=== PATIENT | male | born 1960 | race Caucasian/White ===

== ENCOUNTER 2025-05-07 04:59 | Inpatient (IN) | payer OTHER ==
[2025-05-07] MEDS: IPRATROPIUM-ALBUTEROL 3 ML NEB INHALATION STA ×2 (05:09→07:56)
[2025-05-07] MEDS: LACTATED RINGERS 1,000 ML IV ONE (05:15)
[2025-05-07] MEDS: methylPREDNISolone SOD SUCCI 125 MG/2 ML VIAL IV STA (05:16)
[2025-05-07] MEDS: LORazepam 1 MG/0.5 ML VIAL IV STA ×2 (05:16→17:20)
[2025-05-07] MEDS: MAGNESIUM SULFATE-D5W PMX 1 GM in DEXTROSE/WATER 1 100ML.BAG IVPB SCH (05:17)
[2025-05-07 05:53] LABS: Basophils # (A) 0.02 10*3/uL (0.00-0.10); Basophils % (A) 0.3 %; Eosinophils % (A) 4.7 %; HCT 43.7 % (39.6-50.0); HGB 15.1 g/dL (13.0-17.0); Lymphocytes # (A) 1.81 10*3/uL (0.90-5.00); Lymphocytes % (A) 28.1 %; MCH 29.5 pg (27.0-32.0); MCHC 34.6 g/dL (32.0-37.0); MCV 85.5 fL (80.0-97.0); Mean Platelet Volume 10.9 fL (9.5-12.2); Monocytes # (A) 0.88 10*3/uL (0.20-1.00); Monocytes % (A) 13.6 %; Neutrophils # (A) 3.42 10*3/uL (1.80-7.70); Platelet Count 213 10*3/uL (140-440); RBC 5.11 10*6/uL (4.40-5.60); RDW 11.6 % (11.5-14.5); WBC 6.45 10*3/uL (4.50-10.00)
--- NOTE | 2025-05-07 05:53 | ED ---
General Adult HPI - General Chief complaint: Shortness of Breath Stated complaint: CAMERON Time Seen by Provider: 05/07/25 05:01 Source: patient, EMS - History of Present Illness Initial comments: Patient is a 64-year-old gentleman no significant past medical history presenting today for shortness of breath. Patient states that since Wednesday has had progressively worsening shortness of breath and a cough productive of sputum. He denies any history of COPD or asthma. Is a prior smoker but has not smoked for 40 years. Denies associated fevers or chest pain. - Related Data Allergies Allergy/AdvReac Type Severity Reaction Status Date / Time No Known Allergies Allergy Verified 05/07/25 05:06 Review of Systems ROS Statement: Those systems with pertinent positive or pertinent negative responses have been documented in the HPI. ROS Other: All systems not noted in ROS Statement are negative. Past Medical History Past Medical History: No Reported History Past Surgical History: No Surgical Hx Reported Smoking Status: Former smoker Past Alcohol Use History: None Reported Past Drug Use History: None Reported General Exam - General Exam Comments Initial Comments: PE: CONSTITUTIONAL: In moderate distress, ill-appearing, nontoxic, tachypneic SKIN: Cool, dry, no jaundice, hives or petechiae EYES: Pupils are equally round, extraocular movements intact without nystagmus, clear conjunctiva, non-icteric sclera HENT: Normocephalic, atraumatic, moist mucus membranes, oropharynx clear without exudates NECK: , Full range of motion, normal appearance PULMONARY: Tachypnea, no grease man muscle use, rales in the right lower lung field, wheezes throughout remaining lung miranda no stridor CARDIOVASCULAR: Regular rate, rhythm, normal S1 and S2. No appreciated murmurs, rubs or gallops. Strong radial pulses with intact distal perfusion. No lower extremity edema GASTROINTESTINAL: Soft, active bowel sounds throughout, non-tender, non- distended, no palpable masses, no rebound or guarding. No hepatosplenomegaly MUSCULOSKELETAL: Extremities have no gross deformity, no edema, redness, or swelling. No calf swelling NEUROLOGIC:_a/o x 3, GCS 15, normal mentation and speech. Moves all extremities x 4 without motor or sensory deficit PSYCHIATRIC:_normal mood and affect, thought process is clear and linear Course Vital Signs 06/09/25 06/09/25 06/09/25 04:59 05:07 05:10 Temperature 98.3 F Pulse Rate 92 90 Respiratory 24 24 Rate Blood Pressure 152/122 O2 Sat by Pulse 100 Oximetry 05/07/25 05/07/25 05:20 06:26 Temperature Pulse Rate 92 90 Respiratory 18 Rate Blood Pressure 139/98 O2 Sat by Pulse 97 Oximetry EKG Findings - EKG Comments: EKG Findings:: Sinus rhythm, rate 88 bpm, intervals within acceptable limits, no significant ST elevations or depressions, no arrhythmia Medical Decision Making - Medical Decision Making Was pt. sent in by a medical professional or institution (, [facility], FACILITIES MANAGEMENT EXECUTIVE, urgent care, hospital, or long-term...) When possible be specific @ -[No] Did you speak to anyone other than the patient for history (EMS, parent, family, police, friend...)? What history was obtained from this source @ -[No] Did you review nursing and triage notes (agree or disagree)? Why? @ -[I reviewed nursing and triage notes] Were old charts reviewed (outside hosp., previous admission, EMS record, old EKG, old radiological studies, urgent care reports/EKG's, long-term records)? Report findings @ -[Medical records reviewed] Differential Diagnosis (chest pain, altered mental status, abdominal pain women, abdominal pain men, vaginal bleeding, weakness, fever, dyspnea, syncope, headache, dizziness, GI bleed, back pain, seizure, CVA, palpatations, mental health, musculoskeletal)? @ -[not applicable] EKG interpreted by me (3pts min.). @ -[As above] X-rays interpreted by me (1pt min.). @ -[None done] CT interpreted by me (1pt min.). @ -[None done] U/S interpreted by me (1pt. min.). @ -[None done] What testing was considered but not performed or refused? (CT, X-rays, U/S, labs)? Why? @ -[None] What meds were considered but not given or refused? Why? @ -[None] Did you discuss the management of the patient with other professionals (pr ofessionals i.e. , [facility], FACILITIES MANAGEMENT EXECUTIVE, lab, RT, psych nurse, social worker aide, library circulation department chief, teacher, registration officer, mental health case manager)? Give summary @ -[No] Was smoking cessation discussed for >3mins.? @ -[No] Was critical care preformed (if so, how long)? @ -[No] Were there social determinants of health that impacted care today? How? (Homelessness, low income, unemployed, alcoholism, drug addiction, transportation, low edu. Level, literacy, decrease access to med. care, correction, rehab)? @ -[No] Was there de-escalation of care discussed even if they declined (Discuss DNR or withdrawal of care, Hospice)? @ -[No] What co-morbidities impacted this encounter? (DM, HTN, Smoking, COPD, CAD, Cancer, CVA, ARF, Chemo, Hep., AIDS, mental health diagnosis, sleep apnea, morbid obesity)? @ -[None] Was patient admitted / discharged? Hospital course, mention meds given and route, prescriptions, significant lab abnormalities, going to OR and other pertinent info. @ -[hospital course] patient is a 64-year-old gentleman no significant medical history presenting today for shortness of breath. Patient seen and assessed on arrival, he is moderate distress, tachypneic, ill-appearing. Rales in right lower lung field with wheezes throughout. He does have frequent PVCs on telemetry.Vitals on arrival show pulse ox of 100%, blood pressure 152/122, respiratory rate of 24, pulse 92 temperature 98.3. Patient will be given1 L IV fluids, DuoNeb, Rocephin and azithromycin given rales on exam and concern for community acquired pneumonia, 125 Solu-Medrol, 2 g IV magnesium. On reassessment patient is more short comfortable appearing, no longer tachypneic. He does still have significant wheezes bilaterally on exam. Additionally continues to have frequent PVCs, approximately every other beat is a PVC. Labs are overall reassuring. CXR shows no consolidations, however due to significant persistent wheezing on pulmonary exam with frequent PVCs will admit for observation on telemetry. Patient agreeable plan of care. Undiagnosed new problem with uncertain prognosis? @ -[No] Drug Therapy requiring intensive monitoring for toxicity (Heparin, Nitro, Insulin, Cardizem)? @ -[No] Were any procedures done? @ -[No] Diagnosis/symptom? @ -[default] Acute, or Chronic, or Acute on Chronic? @ -[default] Uncomplicated (without systemic symptoms) or Complicated (systemic symptoms)? @ -[default] Side effects of treatment? @ -[No] Exacerbation, Progression, or Severe Exacerbation? @ -[No] Poses a threat to life or bodily function? How? (Chest pain, [place], [place], pneumonia, PE, COPD, DKA, ARF, appy, cholecystitis, CVA, Diverticulitis, Homicidal, Suicidal, threat to staff... and all critical care pts) @ -[No] - Lab Data Result diagrams: 05/07/25 05:09 05/07/25 05:09 Lab Results 05/07/25 05/07/25 05/07/25 Range/Units 05:09 05:09 05:09 WBC 6.45 (4.50-10.00) 10*3/uL RBC 5.11 (4.40-5.60) 10*6/uL Hgb 15.1 (13.0-17.0) g/dL Hct 43.7 (39.6-50.0) % MCV 85.5 (80.0-97.0) fL MCH 29.5 (27.0-32.0) pg MCHC 34.6 (32.0-37.0) g/dL Plt Count 213 (140-440) 10*3/uL MPV 10.9 (9.5-12.2) fL Immature Gran % (Auto) 0.3 % Neutrophils % 53.0 % Lymphocytes % 28.1 % Monocytes % 13.6 % Eosinophils % 4.7 % Basophils % 0.3 % Immature Gran # 0.02 (0.00-0.04) 10*3/uL Neutrophils # 3.42 (1.80-7.70) 10*3/uL Lymphocytes # 1.81 (0.90-5.00) 10*3/uL Monocytes # 0.88 (0.20-1.00) 10*3/uL Eosinophils # 0.30 (0.04-0.35) 10*3/uL Basophils # 0.02 (0.00-0.10) 10*3/uL PT 11.1 (10.0-12.5) sec INR 1.0 (<1.2) APTT 24.8 (22.0-30.0) sec Sodium 138 (137-145) mmol/L Potassium 4.5 (3.5-5.1) mmol/L Chloride 101 (98-107) mmol/L Carbon Dioxide 20 L (22-30) mmol/L Anion Gap 17 mmol/L BUN 16 (9-20) mg/dL Creatinine 0.86 (0.66-1.25) mg/dL Est GFR (CKD-EPI)AfAm >90 (>60 ml/min/1.73 sqM) Est GFR (CKD-EPI)NonAf >90 (>60 ml/min/1.73 sqM) Glucose 110 H (74-99) mg/dL Calcium 10.2 (8.4-10.2) mg/dL Magnesium 1.7 (1.6-2.3) mg/dL Total Bilirubin 0.7 (0.2-1.3) mg/dL AST 28 (17-59) U/L ALT 20 (4-49) U/L Alkaline Phosphatase 66 (38-126) U/L NT-Pro-B Natriuret Pep 67 pg/mL Total Protein 7.4 (6.3-8.2) g/dL Albumin 4.5 (3.5-5.0) g/dL Influenza Type A (PCR) (Not Detectd) Influenza Type B (PCR) (Not Detectd) RSV (PCR) (Not Detectd) SARS-CoV-2 (PCR) (Not Detectd) 05/07/25 Range/Units 05:28 WBC (4.50-10.00) 10*3/uL RBC (4.40-5.60) 10*6/uL Hgb (13.0-17.0) g/dL Hct (39.6-50.0) % MCV (80.0-97.0) fL MCH (27.0-32.0) pg MCHC (32.0-37.0) g/dL Plt Count (140-440) 10*3/uL MPV (9.5-12.2) fL Immature Gran % (Auto) % Neutrophils % % Lymphocytes % % Monocytes % % Eosinophils % % Basophils % % Immature Gran # (0.00-0.04) 10*3/uL Neutrophils # (1.80-7.70) 10*3/uL Lymphocytes # (0.90-5.00) 10*3/uL Monocytes # (0.20-1.00) 10*3/uL Eosinophils # (0.04-0.35) 10*3/uL Basophils # (0.00-0.10) 10*3/uL PT (10.0-12.5) sec INR (<1.2) APTT (22.0-30.0) sec Sodium (137-145) mmol/L Potassium (3.5-5.1) mmol/L Chloride (98-107) mmol/L Carbon Dioxide (22-30) mmol/L Anion Gap mmol/L BUN (9-20) mg/dL Creatinine (0.66-1.25) mg/dL Est GFR (CKD-EPI)AfAm (>60 ml/min/1.73 sqM) Est GFR (CKD-EPI)NonAf (>60 ml/min/1.73 sqM) Glucose (74-99) mg/dL Calcium (8.4-10.2) mg/dL Magnesium (1.6-2.3) mg/dL Total Bilirubin (0.2-1.3) mg/dL AST (17-59) U/L ALT (4-49) U/L Alkaline Phosphatase (38-126) U/L NT-Pro-B Natriuret Pep pg/mL Total Protein (6.3-8.2) g/dL Albumin (3.5-5.0) g/dL Influenza Type A (PCR) Not Detected (Not Detectd) Influenza Type B (PCR) Not Detected (Not Detectd) RSV (PCR) Not Detected (Not Detectd) SARS-CoV-2 (PCR) Not Detected (Not Detectd) Disposition Clinical Impression: Acute bronchitis, Frequent PVCs, Atypical pneumonia Disposition: ADMITTED IP TO THIS [facility] Condition: Stable Referrals: None,Stated [REFERRING] - 1-2 days
[2025-05-07 06:07] LABS: Partial Thromboplastin Time 24.8 sec (22.0-30.0); Prothrombin Time 11.1 sec (10.0-12.5)
[2025-05-07 06:19] LABS: Influenza A Not Detected (Not Detectd); Influenza B Not Detected (Not Detectd); RSV Not Detected (Not Detectd)
[2025-05-07 06:23] LABS: ALT 20 U/L (4-49); AST 28 U/L (17-59); African American GFR (CKD) >90 (>60 ml/min/1.73 sqM); Albumin 4.5 g/dL (3.5-5.0); Alkaline Phosphatase 66 U/L (38-126); Anion Gap 17 mmol/L; Blood Urea Nitrogen 16 mg/dL (9-20); Calcium 10.2 mg/dL (8.4-10.2); Carbon Dioxide 20 mmol/L (22-30); Chloride 101 mmol/L (98-107); Glucose 110 mg/dL (74-99); Magnesium 1.7 mg/dL (1.6-2.3); Non-African American GFR(CKD) >90 (>60 ml/min/1.73 sqM); Potassium 4.5 mmol/L (3.5-5.1); Sodium 138 mmol/L (137-145); Total Bilirubin 0.7 mg/dL (0.2-1.3); Total Protein 7.4 g/dL (6.3-8.2)
--- NOTE | 2025-05-07 06:24 | XR ---
EXAMINATION TYPE: XR chest 2V DATE OF EXAM: 05/07/2025 CLINICAL INDICATION: Male, 64 years old with history of difficulty breathing, TECHNIQUE: Frontal and lateral views of the chest are obtained. COMPARISON: None FINDINGS: There is no focal air space opacity, pleural effusion, or pneumothorax seen. The cardiac silhouette size is within normal limits. The osseous structures are intact. IMPRESSION: No acute cardiopulmonary process. [facility], , 05/07/2025 6:22 AM
[2025-05-07 06:32] LABS: NT-Pro-B-Type Natriuretic Pept 67 pg/mL
[2025-05-07] MEDS ORDERED: NALOXONE 0.4 MG/ML 1 ML VIAL IVP PRN (06:50)
[2025-05-07] MEDS ORDERED: guaiFENesin-Coden 100-10MG/5ML 10 ML CUP PO PRN (06:50)
[2025-05-07] MEDS ORDERED: IPRATROPIUM-ALBUTEROL 3 ML NEB INHALATION PRN (06:50)
[2025-05-07] MEDS ORDERED: ACETAMINOPHEN TAB 325 MG TAB PO PRN (06:50)
[2025-05-07] MEDS: AZITHROMYCIN 500 MG in SODIUM CHLORIDE 0.9% 250 ML IVPB STA (07:21)
[2025-05-07] MEDS: IPRATROPIUM-ALBUTEROL 3 ML NEB INHALATION SCH (07:58)
[2025-05-07] MEDS ORDERED: RX INFO: IV CONTRAST WAS GIVEN 1 EACH MISC MISCELLANE PRN (08:21)
[2025-05-07] MEDS: guaiFENesin 600 MG TABLET.ER PO SCH (08:25)
[2025-05-07] MEDS: ENOXAPARIN 40 MG/0.4 ML SYRINGE SQ SCH (08:31)
--- NOTE | 2025-05-07 10:24 | CT ---
EXAMINATION TYPE: CT chest w con DATE OF EXAM: 05/07/2025 9:16 AM COMPARISON: None. CLINICAL INDICATION: Male, 64 years old with history of Dyspnea, Dyspnea. TECHNIQUE: Axial images were obtained at 5 mm thick sections. Reconstructed images are reviewed on [place] computer in the coronal plane. Contrast used:100 ml mL of Isovue 300 with IV Contrast, (none if empty) Oral contrast used: (none if empty) CT DLP: 358 mGycm, Automated exposure control for dose reduction was used. FINDINGS: Portion of the thyroid visualized is normal. There is some minimal compressive atelectasis within the dependent right lung base. Small area of inc reased densities in the posterior right centimeters. Series 201 image 74. Additional punctate densiti es are in the region. No enlarged mediastinal or hilar adenopathy is evident. Few shotty lymph nodes within the mediastinu m. The ascending aorta diameter at the level of the main pulmonary artery is 3.7 cm. The main pulmon abbey artery diameter at the bifurcation is 3.0 cm. Moderate coronary artery calcifications present. Limited CT sections are obtained through the upper abdomen. Abdomen is essentially unremarkable. IMPRESSION: 1. Nodule with smaller punctate densities in the right lower lung field discussed above. Pneumonia an d neoplasm could be considered. Follow-up recommended. [facility], , 05/07/2025 10:22 AM
--- NOTE | 2025-05-07 10:51 | P.CRDCN ---
History of Present Illness Consult date: 05/07/25 Reason for Consult (text): Frequent PVCs History of present illness: This is a 64-year-old male with no significant past medical history. We have been asked to evaluate the patient for frequent PVCs. Patient states that he has had no previous cardiac testing in the past. He has been told that he has his irregular heartbeat on occasion which seems to been better than it has in the past. He states he has had this for about 5 to 6 years. He was told that he had the PVCs by the [facility]. 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 He denies chest pain, shortness of breath is normal for him. He states for the past 4 days he has had shortness of breath with more difficulty in the exhale. He states he has had a cough with sputum production. He has also had some lightheadedness or dizziness. He does have a history of smoking and quit 25 years ago. He denies any alcohol use. He does drink a full pot of coffee daily. Blood pressure 132/82, heart rate 112, pulse ox 94% on room air. Patient is seen today in the emergency center waiting for bed on the cardiac stepdown unit. -EKG: Sinus rhythm nonspecific changes no acute ST changes. Telemetry with frequent PVCs. -Chest x-ray: No acute process -Laboratory studies: CBC is unremarkable. INR 1. Lactic acid 3.3. Creatinine 0.86, potassium 4.5, magnesium 1.7, liver function tests are normal. proBNP 67, troponin negative x 1. Cepheid viral panel not detected. -Home cardiac medications: None Review Of Systems: At the time of my exam: CONSTITUTIONAL: Denies fever or chills. HEENT: Denies blurred vision, vision changes, or eye pain. Denies hemoptysis CARDIOVASCULAR: Denies chest pain. Denies orthopnea. Denies PND. Denies palpitations RESPIRATORY: Denies shortness of breath. Reports cough with sputum production. GASTROINTESTINAL: Denies abdominal pain. Denies nausea or vomiting. HEMATOLOGIC: Denies bleeding disorders. GENITOURINARY: Denies any blood in urine. SKIN: Denies puritis. Denies rash. Physical examination: Gen: This is 64-year-old male in no acute distress VS: reviewed HEENT: Head is atraumatic, normocephalic. Pupils equal, round. Sclerae is a nicteric. NECK: Supple. No JVD. LUNGS: Bilateral rhonchi. No intercostal retractions. HEART: Regular rate and rhythm. No murmur. ABDOMEN: Soft No tenderness. EXTREMITIES: No pedal edema. No calf tenderness. NEUROLOGICAL: Patient is awake, alert and oriented x3. 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 Nurse practitioner note has been reviewed, I agree with documented findings and plan of care. Patient was seen and examined. Past Medical History Past Medical History: No Reported History Past Surgical History: No Surgical Hx Reported Smoking Status: Former smoker Past Alcohol Use History: None Reported Past Drug Use History: None Reported Medications and Allergies Allergies Allergy/AdvReac Type Severity Reaction Status Date / Time No Known Allergies Allergy Verified 05/07/25 05:06 Physical Exam Vitals: Vital Signs Temp Pulse Resp BP Pulse Ox 05/07/25 08:11 90 05/07/25 07:59 82 05/07/25 07:18 95 18 142/84 94 L 05/07/25 06:26 90 18 139/98 97 05/07/25 05:20 92 05/07/25 05:10 90 05/07/25 05:07 24 05/07/25 04:59 98.3 F 92 24 152/122 100 Intake and Output 05/06/25 05/07/25 05/07/25 22:59 06:59 14:59 Other: Weight 83.915 kg Results 05/07/25 05:09 05/07/25 05:09 Cardiac Enzymes 05/07/25 05/07/25 Range/Units 05:09 05:09 AST 28 (17-59) U/L Troponin I <0.012 (0.000-0.034) ng/mL Coagulation 05/07/25 Range/Units 05:09 PT 11.1 (10.0-12.5) sec APTT 24.8 (22.0-30.0) sec CBC 05/07/25 Range/Units 05:09 WBC 6.45 (4.50-10.00) 10*3/uL RBC 5.11 (4.40-5.60) 10*6/uL Hgb 15.1 (13.0-17.0) g/dL Hct 43.7 (39.6-50.0) % Plt Count 213 (140-440) 10*3/uL Comprehensive Metabolic Panel 05/07/25 Range/Units 05:09 Sodium 138 (137-145) mmol/L Potassium 4.5 (3.5-5.1) mmol/L Chloride 101 (98-107) mmol/L Carbon Dioxide 20 L (22-30) mmol/L BUN 16 (9-20) mg/dL Creatinine 0.86 (0.66-1.25) mg/dL Glucose 110 H (74-99) mg/dL Calcium 10.2 (8.4-10.2) mg/dL AST 28 (17-59) U/L ALT 20 (4-49) U/L Alkaline Phosphatase 66 (38-126) U/L Total Protein 7.4 (6.3-8.2) g/dL Albumin 4.5 (3.5-5.0) g/dL Current Medications Generic Name Dose Route Start Last Admin Trade Name Freq PRN Reason Stop Dose Admin Acetaminophen 650 mg 05/07/25 06:50 Acetaminophen Tab 325 Mg Tab PO Q6HR PRN Mild Pain or Fever > 100.5 Albuterol/Ipratropium 3 ml 05/07/25 06:50 Ipratropium-Albuterol 3 Ml Neb INHALATION RT-Q2H PRN Shortness Of Breath Or Wheezing Albuterol/Ipratropium 3 ml 05/07/25 08:00 05/07/25 07:58 Ipratropium-Albuterol 3 Ml Neb INHALATION 3 ml RT-QID DELVIN Administration Azithromycin 500 mg 05/08/25 09:00 Azithromycin 500 Mg Tab PO 05/09/25 09:01 DAILY [facility] Protocol Enoxaparin Sodium 40 mg 05/07/25 09:00 05/07/25 08:31 Enoxaparin 40 Mg/0.4 Ml Syringe SQ Not Given DAILY [facility] Guaifenesin 600 mg 05/07/25 09:00 05/07/25 08:25 Guaifenesin 600 Mg Tablet.Er PO 600 mg Q12HR DELVIN Administration Guaifenesin/Codeine Phosphate 10 ml 05/07/25 06:50 Guaifenesin-Coden 100-10mg/5ml 10 Ml Cup PO Q6H PRN Cough Ceftriaxone Sodium 1 gm/ 50 mls @ 100 mls/hr 05/08/25 09:00 Sodium Chloride IVPB 05/11/25 09:29 Q24HR DELVIN Protocol Miscellaneous Information 1 each 05/07/25 08:21 Rx Info: Iv Contrast Was Given 1 Each Misc MISCELLANE 05/09/25 08:22 DAILY PRN Per Protocol Naloxone HCl 0.2 mg 05/07/25 06:50 Naloxone 0.4 Mg/Ml 1 Ml Vial IVP Q2M PRN Opioid Reversal Prednisone 40 mg 05/08/25 09:00 Prednisone 20 Mg Tab PO 05/12/25 09:01 DAILY DELVIN Intake and Output 05/06/25 05/07/25 05/07/25 22:59 06:59 14:59 Other: Weight 83.915 kg 05/07/25 05:09 05/07/25 05:09
[2025-05-07] MEDS ORDERED: NON FORMULARY DRUG (Naloxone Hcl [Narcan] 4 MG Each) NASAL PRN (11:20)
[2025-05-07] MEDS ORDERED: DEXTROSE 50% SYRINGE 50 ML IVP PRN ×2 (11:22)
[2025-05-07] MEDS: methylPREDNISolone SOD SUCCI 125 MG/2 ML VIAL IV SCH (11:46)
[2025-05-07] MEDS: LEVOTHYROXINE 50 MCG TAB PO SCH (11:50)
--- NOTE | 2025-05-07 11:51 | CA ---
Transthoracic Echo Report Name: Dustin Tapia Age: 64 Gender: M : 1960 Exam Date: 05/07/2025 09:37 Exam Location: [facility] Ht (in): 73 Wt (lb): 185 Ordering Physician: Harmony Jewell Attending/Referring Phys: [id number], [place] Retail Assistant Store Manager Sana Brunner RDCS Procedure CPT: Indications: LVF, freq PVCs Cardiac Hx: COPD Technical Quality: Good Contrast 1: Total Dose (mL): Contrast 2: Total Dose (mL): MEASUREMENTS (Male / Female) Normal Values 2D ECHO LV Diastolic Diameter PLAX 4.9 cm 4.2 - 5.9 / 3.9 - 5.3 cm LV Systolic Diameter PLAX 2.7 cm IVS Diastolic Thickness 0.8 cm 0.6 - 1.0 / 0.6 - 0.9 cm LVPW Diastolic Thickness 0.9 cm 0.6 - 1.0 / 0.6 - 0.9 cm LV Relative Wall Thickness 0.3 RV Internal Dim ED PLAX 3.9 cm LA Systolic Diameter LX 3.6 cm 3.0 - 4.0 / 2.7 - 3.8 cm LV Diastolic Volume MOD 4C 79.9 cm??? LV Systolic Volume MOD 4C 42.7 cm??? LV Ejection Fraction MOD 4C 46.5 % LV Cardiac Index MOD 4C 1907.5 cm???/min???m??? LV Diastolic Length 4C 9.8 cm LV Systolic Length 4C 8.1 cm LV Diastolic Volume MOD 2C 83.0 cm??? LV Systolic Volume MOD 2C 27.5 cm??? LV Ejection Fraction MOD 2C 66.8 % LV Cardiac Index MOD 2C 2850.3 cm???/min???m??? LV Diastolic Length 2C 9.5 cm LV Systolic Length 2C 7.8 cm LA Volume 36.6 cm??? 18 - 58 / 22 - 52 cm??? LA Volume Index 17.6 cm???/m??? 16 - 28 cm???/m??? M-MODE Aortic Root Diameter MM 3.7 cm AV Cusp Separation MM 2.2 cm DOPPLER AV Peak Velocity 175.7 cm/s AV Peak Gradient 12.3 mmHg MV Area PHT 5.8 cm??? Mitral E Point Velocity 97.0 cm/s Mitral A Point Velocity 133.6 cm/s Mitral E to A Ratio 0.7 MV Deceleration Time 131.9 ms TR Peak Velocity 259.9 cm/s TR Peak Gradient 27.0 mmHg Right Ventricular Systolic Press 32.0 mmHg FINDINGS Left Ventricle Left ventricular ejection fraction is estimated at 55-60 %. Left ventricular cavity size normal. Left ventricular wall thickness normal. Normal left ventricular wall motion. Right Ventricle Right ventricular dilatation. Right ventricular systolic pressure within normal limits. Right Atrium Normal right atrial size. No right atrial thrombus or mass seen. Left Atrium Normal left atrial size. No spontaneous echo contrast seen in the left atrium. Mitral Valve Structurally normal mitral valve. No mitral stenosis, or prolapse. Trace to mild regurgitation Aortic Valve Trileaflet aortic valve. Aortic valve sclerosis. No aortic valve stenosis or regurgitation. Tricuspid Valve Structurally normal tricuspid valve. Mild tricuspid regurgitation. Pulmonic Valve Pulmonic valve not well visualized. No pulmonic regurgitation. Pericardium No pericardial effusion. Aorta Normal size aortic root and proximal ascending aorta. CONCLUSIONS 1. Normal left ventricular size and systolic function 2. Trace to mild mitral regurgitation 3. Mild tricuspid regurgitation with no evidence of pulmonary hypertension Previewed by: Dr. Cadence Mcgarry MD (Electronically Signed) Final Date: 07 May 2025 11:50
[2025-05-07 11:55] LABS: Glucose,Whole Blood 250 mg/dL (70-110)
[2025-05-07] MEDS: INSULIN LISPRO (HumaLOG) 100 UNIT/ML 10 mL VL SQ SCH (11:57)
[2025-05-07] MEDS: traMADol 50 MG TAB PO PRN (13:32)
--- NOTE | 2025-05-07 13:55 | P.CNPUL ---
History of Present Illness Consult date: 05/07/25 Requesting physician: Breonna Clark Reason for consult: cough, abnormal CXR/CT Chief complaint: Shortness of breath, cough, congestion History of present illness: This is a 64-year-old male patient with a known history of chronic back pain, former smoker who presented here to the emergency room early this morning with complaints of shortness of breath over the past 4 days. He has also had fever and chills along with diarrhea. His cough has been nonproductive. Chest x-ray reveals no acute pulmonary process. He is maintaining O2 saturations in the 90s on room air oxygen. He is afebrile. Hemodynamically stable. White count 6.4. Hemoglobin 15.1. Platelets 213. Sodium 138. Potassium 4.5. Bicarb 20. BUN 16. Creatinine 0.86. Glucose 110. Troponin negative x 1. proBNP 67. Viral screen was negative for influenza A/B, RSV and COVID. He is seen today in the emergency department in consultation. He is sitting up on a stretcher. Awake and alert in no acute distress. He does have a dry nonproductive cough. He is dyspneic with conversation. Dyspneic with minimal exertion. Echocardiogram revealed normal left ventricular size and systolic function. No significant senthil vular heart disease. No pulmonary hypertension. Review of Systems REVIEW OF SYSTEMS: CONSTITUTIONAL: Denies any recent significant weight loss or weight gain. EYES: Denies change in vision. EARS, NOSE, MOUTH, THROAT: Denies headaches, denies sore throat. CARDIOVASCULAR: Denies chest pain, palpitations or syncopal episodes. RESPIRATORY: Positive for shortness of breath, cough, congestion no hemoptysis. GASTROINTESTINAL: Denies change in appetite, denies abdominal pain GENITOURINARY: Denies hematuria, denies infections. MUSKULOSKELETAL: Denies pain, denies swelling. INTEGUMENTARY: Denies rash, denies eczema. NEUROLOGICAL: Denies recent memory loss, no recent seizure activity. PSYCHIATRIC: Denies anxiety, denies depression. HEMATOLOGIC/LYMPHATIC: Denies anemia, denies enlarged lymph nodes. Past Medical History Past Medical History: No Reported History Past Surgical History: No Surgical Hx Reported Smoking Status: Former smoker Past Alcohol Use History: None Reported Past Drug Use History: None Reported Medications and Allergies Home Medications Medication Instructions Recorded Confirmed Type Ergocalciferol [Vitamin D2 (1250 1,250 mcg PO WEEKLY 05/07/25 05/07/25 History Mcg = [id number] Iu)] Levothyroxine Sodium [Synthroid] 50 mcg PO DAILY 05/07/25 05/07/25 History Naloxone HCl [Narcan] 4 mg NASAL DIRECTED PRN 05/07/25 05/07/25 History Simvastatin [Zocor] 80 mg PO HS 05/07/25 05/07/25 History traMADol HCl [Ultram] 100 mg PO Q4HR PRN 05/07/25 05/07/25 History Allergies Allergy/AdvReac Type Severity Reaction Status Date / Time No Known Allergies Allergy Verified 05/07/25 05:06 Physical Exam Vitals: Vital Signs Temp Pulse Resp BP Pulse Ox 05/07/25 13:00 96 16 131/78 94 L 05/07/25 12:00 97 16 140/77 95 05/07/25 11:00 90 05/07/25 10:59 98.2 F 81 16 126/102 95 05/07/25 10:49 88 05/07/25 08:11 90 05/07/25 07:59 82 05/07/25 07:18 95 18 142/84 94 L 05/07/25 06:26 90 18 139/98 97 05/07/25 05:20 92 05/07/25 05:10 90 05/07/25 05:07 24 05/07/25 04:59 98.3 F 92 24 152/122 100 Intake and Output 05/06/25 05/07/25 05/07/25 22:59 06:59 14:59 Other: Weight 83.915 kg GENERAL EXAM: Alert, 64-year-old male patient, on room air oxygen, fairly comfortable in no apparent distress. HEAD: Normocephalic. EYES: Normal reaction of pupils, equal size. NOSE: Clear with pink turbinates. THROAT: No erythema or exudates. NECK: No masses, no JVD. CHEST: No chest wall deformity. LUNGS: Equal air entry with few scattered rhonchi. CVS: S1 and S2 normal with no audible murmur, regular rhythm. ABDOMEN: No hepatosplenomegaly, normal bowel sounds, no guarding or rigidity. SPINE: No scoliosis or deformity SKIN: No rashes CENTRAL NERVOUS SYSTEM: No focal deficits, tone is normal in all 4 extremities. EXTREMITIES: There is no peripheral edema. No clubbing, no cyanosis. Peripheral pulses are intact. Results - Laboratory Findings CBC and BMP: 05/07/25 05:09 05/07/25 05:09 PT/INR, D-dimer PT 11.1 sec (10.0-12.5) 05/07/25 05:09 INR 1.0 (<1.2) 05/07/25 05:09 D-Dimer 0.61 mg/L FEU (<0.60) H 05/07/25 11:32 Abnormal lab findings: Abnormal Labs 05/07/25 05/07/25 05/07/25 05:09 05:09 09:58 D-Dimer Carbon Dioxide 20 L Glucose 110 H POC Glucose (mg/dL) Plasma Lactic Acid Gustabo 3.3 H* 3.1 H* 05/07/25 05/07/25 05/07/25 11:32 11:54 13:14 D-Dimer 0.61 H Carbon Dioxide Glucose POC Glucose (mg/dL) 250 H Plasma Lactic Acid Gustabo 4.5 H* - Diagnostic Findings Chest x-ray: image reviewed Assessment and Plan Assessment: Dyspnea secondary to suspected acute exacerbation of chronic obstructive pulmonary disease versus early pneumonia. Chest x-ray reveals no acute cardiopulmonary process. Viral screen negative for influenza A/B, RSV, COVID Former smoker Chronic back pain Plan: The patient was seen and evaluated Chest x-ray, labs and medications reviewed Echocardiogram reviewed Will obtain a CT scan of the chest Currently stable on room air oxygen Continue DuoNeb inhalations Continue Solu-Medrol Lovenox for DVT prophylaxis Continue antibiotics for now Check a procalcitonin Robitussin as needed for cough We will continue to follow and make further recommendations based on his clinical status I have personally seen and examined the patient, performed the documentation and the assessment and plan as written. Number of minutes spent on the visit: 20 Dictation was produced using [employer] software. Please excuse any grammatical, word or spelling errors. Time with Patient: Greater than 30
--- NOTE | 2025-05-07 14:35 | HP ---
HISTORY AND PHYSICAL CHIEF COMPLAINT: Shortness of breath and cough. HISTORY OF PRESENT ILLNESS: This is a 64-year-old gentleman with a past medical history with no significant medical issues, was working in [employer] and . The patient apparently rode a motorcycle and subsequently had shortness of breath with cough and sputum. The patient came to the ER and was found to have bilateral pneumonia. Lactic acid is also elevated. The patient admitted for further evaluation and treatment. Viral testing is negative. There is no history of fever, rigors, or chills. PAST MEDICAL HISTORY: No significant cardiovascular illness. MEDICATIONS: Zocor. Rest of medications reviewed. ALLERGIES: None. FAMILY HISTORY: No history of heart disease or strokes in the family. SOCIAL HISTORY: No history of smoking or alcohol. REVIEW OF SYSTEMS: Fourteen-point review of systems is negative except as mentioned earlier. PHYSICAL EXAMINATION: VITAL SIGNS: Pulse is 81, blood pressure 120/61, and respirations 16. CHEST: Few scattered rhonchi especially in the bases, coarse crackles present. CARDIOVASCULAR: S1 and S2. ABDOMEN: Soft, nontender. EXTREMITIES: Legs, no edema. NERVOUS SYSTEM: No focal deficit. LABORATORY DATA: Reviewed. ASSESSMENT: 1. Bilateral pneumonia, possibly community-acquired. 2. Hypercholesterolemia. 3. Hypothyroidism. RECOMMENDATION: 1. This 64-year-old gentleman presented with multiple medical issues, we will monitor the patient closely. I recommend empiric antibiotics. We will check for mycoplasma and Legionella. 2. Frequent premature ventricular contractions. We will also consult Cardiology for evaluation of frequent premature ventricular contractions and home medications will be continued. A 2D echo with Doppler has been ordered. Further recommendations to follow. MMODL / IJN: [id number] /
[2025-05-07 17:06] LABS: Glucose,Whole Blood 189 mg/dL (70-110)
[2025-05-07] MEDS: SODIUM CHLORIDE 0.9% 1,000 ML IV SCH (17:18)
[2025-05-07] MEDS ORDERED: LORazepam 1 MG/0.5 ML VIAL IV PRN (17:19)
[2025-05-07] MEDS: SODIUM CHLORIDE 0.9% 500 ML 500 ML IV ONE (17:21)
[2025-05-07 18:06] LABS: Glucose,Whole Blood 206 mg/dL (70-110)
[2025-05-07 21:07] LABS: Glucose,Whole Blood 150 mg/dL (70-110)
[2025-05-07] MEDS: ATORVASTATIN 40 MG TAB PO SCH (21:09)
[2025-05-08 01:41] LABS: Basophils # (A) 0.02 10*3/uL (0.00-0.10); Basophils % (A) 0.1 %; HCT 38.1 % (39.6-50.0); HGB 13.1 g/dL (13.0-17.0); Lymphocytes # (A) 1.15 10*3/uL (0.90-5.00); Lymphocytes % (A) 8.5 %; MCH 29.7 pg (27.0-32.0); MCHC 34.4 g/dL (32.0-37.0); MCV 86.4 fL (80.0-97.0); Mean Platelet Volume 11.5 fL (9.5-12.2); Monocytes # (A) 0.57 10*3/uL (0.20-1.00); Monocytes % (A) 4.2 %; Neutrophils # (A) 11.77 10*3/uL (1.80-7.70); Neutrophils % (A) 86.9 %; Platelet Count 187 10*3/uL (140-440); RBC 4.41 10*6/uL (4.40-5.60); RDW 11.9 % (11.5-14.5); WBC 13.55 10*3/uL (4.50-10.00)
[2025-05-08 02:00] LABS: African American GFR (CKD) >90 (>60 ml/min/1.73 sqM); Anion Gap 9 mmol/L; Blood Urea Nitrogen 15 mg/dL (9-20); Calcium 9.7 mg/dL (8.4-10.2); Carbon Dioxide 24 mmol/L (22-30); Chloride 103 mmol/L (98-107); Glucose 214 mg/dL (74-99); Non-African American GFR(CKD) >90 (>60 ml/min/1.73 sqM); Potassium 4.2 mmol/L (3.5-5.1); Sodium 136 mmol/L (137-145)
[2025-05-08 06:02] LABS: Glucose,Whole Blood 150 mg/dL (70-110)
[2025-05-08] MEDS ORDERED: predniSONE 20 MG TAB PO SCH (09:00)
[2025-05-08] MEDS: AZITHROMYCIN 500 MG TAB PO SCH (09:41)
--- NOTE | 2025-05-08 11:04 | P.PN ---
Subjective This is a 64-year-old male with no significant past medical history. We have been asked to evaluate the patient for frequent PVCs. Patient states that he has had no previous cardiac testing in the past. He has been told that he has his irregular heartbeat on occasion which seems to been better than it has in the past. He states he has had this for about 5 to 6 years. He was told that he had the PVCs by the [facility]. 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 He denies chest pain, shortness of breath is normal for him. He states for the past 4 days he has had shortness of breath with more difficulty in the exhale. He states he has had a cough with sputum production. He has also had some lightheadedness or dizziness. He does have a history of smoking and quit 25 years ago. He denies any alcohol use. He does drink a full pot of coffee daily. Blood pressure 132/82, heart rate 112, pulse ox 94% on room air. Patient is seen today in the emergency center waiting for bed on the cardiac stepdown unit. 05/08/2025 Patient seen and examined walking around the room in no acute distress. He was seen initially for increased PVCs yesterday by Dr. Mcgarry. Echocardiogram reviewed, ejection fraction 55 to 60%, trace to mild MR, mild TR RVSP 32. Laboratory data reviewed, WBC 13.5, hemoglobin 13.1, platelets 187, sodium 136, potassium 4.2, creatinine 0.82, TSH 8.19, free T4 1.21. Physical examination: Gen: This is 64-year-old male in no acute distress HEENT: Head is atraumatic, normocephalic. Pupils equal, round. Sclerae is anicteric. NECK: Supple. No JVD. LUNGS: Bilateral rhonchi. No intercostal retractions. HEART: Regular rate and rhythm. No murmur. ABDOMEN: Soft No tenderness. EXTREMITIES: No pedal edema. No calf tenderness. NEUROLOGICAL: Patient is awake, alert and oriented x3. Assessment: Frequent PVCs, patient has been aware for 5 to 6 years Bilateral pneumonia Remote history of tobacco use and dependence Excessive coffee intake daily Plan: Increase levothyroxine to 75 mcg daily. He will take this 6 days/week. Follow- up thyroid labs in 6 weeks with PCP. 72-hour Holter monitor on discharge, follow-up in the office with Dr. Mcgarry in 2 weeks. We will follow as needed, please call with further questions or concerns. Nurse practitioner note has been reviewed, I agree with documented findings and plan of care. Patient was seen and examined. Objective - Vital Signs Vital signs: Vital Signs Temp 97.9 F 05/08/25 08:00 Pulse 85 05/08/25 09:32 Resp 20 05/08/25 08:00 BP 129/79 05/08/25 08:00 Pulse Ox 95 05/08/25 09:11 FiO2 Intake & Output 05/07/25 05/08/25 05/08/25 18:59 06:59 18:59 Intake Total 1240 180 Balance 1240 180 Weight 83.1 kg Intake: Intake, IV Titration 1000 Amount Sodium Chloride 0.9% 1, 1000 000 ml @ 75 mls/hr IV . [id number] DELVIN Rx#:[id number] Oral 240 180 Other: # Voids 3 - Labs CBC & Chem 7: 05/08/25 01:33 05/08/25 01:33 Labs: Abnormal Lab Results - Last 24 Hours (Table) 05/07/25 05/07/25 05/07/25 Range/Units 05:09 09:58 11:32 WBC (4.50-10.00) 10*3/uL Hct (39.6-50.0) % Neutrophils # (1.80-7.70) 10*3/uL Eosinophils # (0.04-0.35) 10*3/uL D-Dimer 0.61 H (<0.60) mg/L FEU Sodium (137-145) mmol/L Glucose (74-99) mg/dL POC Glucose (mg/dL) (70-110) mg/dL Hemoglobin A1c (<=6.0) % Plasma Lactic Acid Gustabo 3.1 H* (0.7-2.0) mmol/L TSH 8.190 H (0.350-5.500) UIU/ML 05/07/25 05/07/25 05/07/25 Range/Units 11:54 13:14 16:05 WBC (4.50-10.00) 10*3/uL Hct (39.6-50.0) % Neutrophils # (1.80-7.70) 10*3/uL Eosinophils # (0.04-0.35) 10*3/uL D-Dimer (<0.60) mg/L FEU Sodium (137-145) mmol/L Glucose (74-99) mg/dL POC Glucose (mg/dL) 250 H (70-110) mg/dL Hemoglobin A1c (<=6.0) % Plasma Lactic Acid Gustabo 4.5 H* 4.9 H* (0.7-2.0) mmol/L TSH (0.350-5.500) UIU/ML 05/07/25 05/07/25 05/07/25 Range/Units 16:55 18:05 19:08 WBC (4.50-10.00) 10*3/uL Hct (39.6-50.0) % Neutrophils # (1.80-7.70) 10*3/uL Eosinophils # (0.04-0.35) 10*3/uL D-Dimer (<0.60) mg/L FEU Sodium (137-145) mmol/L Glucose (74-99) mg/dL POC Glucose (mg/dL) 189 H 206 H (70-110) mg/dL Hemoglobin A1c (<=6.0) % Plasma Lactic Acid Gustabo 3.5 H* (0.7-2.0) mmol/L TSH (0.350-5.500) UIU/ML 05/07/25 05/07/25 05/08/25 Range/Units 21:05 21:54 01:33 WBC (4.50-10.00) 10*3/uL Hct (39.6-50.0) % Neutrophils # (1.80-7.70) 10*3/uL Eosinophils # (0.04-0.35) 10*3/uL D-Dimer (<0.60) mg/L FEU Sodium (137-145) mmol/L Glucose (74-99) mg/dL POC Glucose (mg/dL) 150 H (70-110) mg/dL Hemoglobin A1c 6.4 H (<=6.0) % Plasma Lactic Acid Gustabo 2.5 H* (0.7-2.0) mmol/L TSH (0.350-5.500) UIU/ML 05/08/25 05/08/25 05/08/25 Range/Units 01:33 01:33 06:00 WBC 13.55 H (4.50-10.00) 10*3/uL Hct 38.1 L (39.6-50.0) % Neutrophils # 11.77 H (1.80-7.70) 10*3/uL Eosinophils # 0.00 L (0.04-0.35) 10*3/uL D-Dimer (<0.60) mg/L FEU Sodium 136 L (137-145) mmol/L Glucose 214 H (74-99) mg/dL POC Glucose (mg/dL) 150 H (70-110) mg/dL Hemoglobin A1c (<=6.0) % Plasma Lactic Acid Gustabo (0.7-2.0) mmol/L TSH (0.350-5.500) UIU/ML
[2025-05-08 11:17] LABS: Glucose,Whole Blood 161 mg/dL (70-110)
--- NOTE | 2025-05-08 13:08 | P.PN ---
Subjective Progress Note Date: 05/08/25 This is a 64-year-old male patient with a known history of chronic back pain, former smoker who presented here to the emergency room early this morning with complaints of shortness of breath over the past 4 days. He has also had fever and chills along with diarrhea. His cough has been nonproductive. Chest x-ray reveals no acute pulmonary process. He is maintaining O2 saturations in the 90s on room air oxygen. He is afebrile. Hemodynamically stable. White count 6.4. Hemoglobin 15.1. Platelets 213. Sodium 138. Potassium 4.5. Bicarb 20. BUN 16. Creatinine 0.86. Glucose 110. Troponin negative x 1. proBNP 67. Viral screen was negative for influenza A/B, RSV and COVID. He is seen today in the emergency department in consultation. He is sitting up on a stretcher. Awake and alert in no acute distress. He does have a dry nonproductive cough. He is dyspneic with conversation. Dyspneic with minimal exertion. Echocardiogram revealed normal left ventricular size and systolic function. No significant valvular heart disease. No pulmonary hypertension. The patient is seen today May 08, 2025 in follow-up on the selective care unit. He is currently up ambulating in his room. Awake and alert in no acute distress. Denies any worsening shortness of breath, cough or congestion. Feeling nearly back to his baseline. He is maintaining good O2 saturations in the mid 90s on room air oxygen. He is been afebrile. Hemodynamically stable. White count 13.5. Hemoglobin 13.1. Platelets 187. Sodium 136. Potassium 4.2. Bicarb 24. BUN 15. Creatinine 0.82. Glucose 214. Hemoglobin A1c 6.4%. He remains on DuoNeb inhalations, IV Solu-Medrol. Antibiotics in the form of ce ftriaxone and azithromycin. Lovenox for DVT prophylaxis. Remains on Mucinex. Robitussin as needed. Objective - Vital Signs Vital signs: Vital Signs Temp 98.0 F 05/08/25 12:00 Pulse 67 05/08/25 12:52 Resp 18 05/08/25 12:00 BP 127/73 05/08/25 12:00 Pulse Ox 94 L 05/08/25 12:00 FiO2 Intake & Output 05/07/25 05/08/25 05/08/25 18:59 06:59 18:59 Intake Total 1240 180 Balance 1240 180 Weight 83.1 kg Intake: Intake, IV Titration 1000 Amount Sodium Chloride 0.9% 1, 1000 000 ml @ 75 mls/hr IV . [id number] DELVIN Rx#:[id number] Oral 240 180 Other: # Voids 3 - Exam GENERAL EXAM: Alert, 64-year-old male, ambulating in his room, on room air oxygen, comfortable in no apparent distress. HEAD: Normocephalic. EYES: Normal reaction of pupils, equal size. NOSE: Clear with pink turbinates. THROAT: No erythema or exudates. NECK: No masses, no JVD. CHEST: No chest wall deformity. LUNGS: Equal air entry with few scattered rhonchi. CVS: S1 and S2 normal with no audible murmur, regular rhythm. ABDOMEN: No hepatosplenomegaly, normal bowel sounds, no guarding or rigidity. SPINE: No scoliosis or deformity SKIN: No rashes CENTRAL NERVOUS SYSTEM: No focal deficits, tone is normal in all 4 extremities. EXTREMITIES: There is no peripheral edema. No clubbing, no cyanosis. Peripheral pulses are intact. - Labs CBC & Chem 7: 05/08/25 01:33 05/08/25 01:33 Labs: Abnormal Lab Results - Last 24 Hours (Table) 05/07/25 05/07/25 05/07/25 Range/Units 05:09 13:14 16:05 WBC (4.50-10.00) 10*3/uL Hct (39.6-50.0) % Neutrophils # (1.80-7.70) 10*3/uL Eosinophils # (0.04-0.35) 10*3/uL Sodium (137-145) mmol/L Glucose (74-99) mg/dL POC Glucose (mg/dL) (70-110) mg/dL Hemoglobin A1c (<=6.0) % Plasma Lactic Acid Gustabo 4.5 H* 4.9 H* (0.7-2.0) mmol/L TSH 8.190 H (0.350-5.500) UIU/ML 05/07/25 05/07/25 05/07/25 Range/Units 16:55 18:05 19:08 WBC (4.50-10.00) 10*3/uL Hct (39.6-50.0) % Neutrophils # (1.80-7.70) 10*3/uL Eosinophils # (0.04-0.35) 10*3/uL Sodium (137-145) mmol/L Glucose (74-99) mg/dL POC Glucose (mg/dL) 189 H 206 H (70-110) mg/dL Hemoglobin A1c (<=6.0) % Plasma Lactic Acid Gustabo 3.5 H* (0.7-2.0) mmol/L TSH (0.350-5.500) UIU/ML 05/07/25 05/07/25 05/08/25 Range/Units 21:05 21:54 01:33 WBC (4.50-10.00) 10*3/uL Hct (39.6-50.0) % Neutrophils # (1.80-7.70) 10*3/uL Eosinophils # (0.04-0.35) 10*3/uL Sodium (137-145) mmol/L Glucose (74-99) mg/dL POC Glucose (mg/dL) 150 H (70-110) mg/dL Hemoglobin A1c 6.4 H (<=6.0) % Plasma Lactic Acid Gustabo 2.5 H* (0.7-2.0) mmol/L TSH (0.350-5.500) UIU/ML 05/08/25 05/08/25 05/08/25 Range/Units 01:33 01:33 06:00 WBC 13.55 H (4.50-10.00) 10*3/uL Hct 38.1 L (39.6-50.0) % Neutrophils # 11.77 H (1.80-7.70) 10*3/uL Eosinophils # 0.00 L (0.04-0.35) 10*3/uL Sodium 136 L (137-145) mmol/L Glucose 214 H (74-99) mg/dL POC Glucose (mg/dL) 150 H (70-110) mg/dL Hemoglobin A1c (<=6.0) % Plasma Lactic Acid Gustabo (0.7-2.0) mmol/L TSH (0.350-5.500) UIU/ML 05/08/25 Range/Units 11:16 WBC (4.50-10.00) 10*3/uL Hct (39.6-50.0) % Neutrophils # (1.80-7.70) 10*3/uL Eosinophils # (0.04-0.35) 10*3/uL Sodium (137-145) mmol/L Glucose (74-99) mg/dL POC Glucose (mg/dL) 161 H (70-110) mg/dL Hemoglobin A1c (<=6.0) % Plasma Lactic Acid Gustabo (0.7-2.0) mmol/L TSH (0.350-5.500) UIU/ML Assessment and Plan Assessment: Dyspnea secondary to suspected acute exacerbation of chronic obstructive pulmonary disease versus early pneumonia. Chest x-ray reveals no acute cardiopulmonary process. Procalcitonin negative. Viral screen negative for influenza A/B, RSV, COVID. CT scan of the chest reveals a nodule with smaller punctate densities in the right lower lung field. Former smoker Chronic back pain Plan: The patient was seen and evaluated CT scan of the chest, labs and medications reviewed Currently stable on room air oxygen Cleared for discharge Procalcitonin negative Complete a prednisone taper Recommend Symbicort, albuterol HFA Follow-up in our office in 1 week Recommend follow-up CT scan of the chest I have personally seen and examined the patient, performed the documentation and the assessment and plan as written. Number of minutes spent on the visit: 10 Dictation was produced using [employer] dictation software. Please excuse any grammatical, word or spelling errors.
--- NOTE | 2025-05-08 14:18 | PN ---
PROGRESS NOTE DATE OF SERVICE: 05/08/2025 SUBJECTIVE: This is a 64-year-old gentleman who was admitted with bilateral pneumonia, is on IV antibiotics. No chest pain. No palpitation. PHYSICAL EXAMINATION: VITAL SIGNS: Pulse is 58, blood pressure 110/70, AND respirations 20. CHEST: A few scattered rhonchi. CARDIOVASCULAR: S1 and S2. ABDOMEN: Soft. NERVOUS SYSTEM: No focal deficit. LABORATORY DATA: Reviewed. ASSESSMENT: 1. Bilateral pneumonia, possibly community-acquired. 2. Hypercholesterolemia. 3. Frequent PVCs. 4. Hypothyroidism. RECOMMENDATIONS AND DISCUSSION: Recommend to continue current management and continue symptomatic treatment. Otherwise, closely follow with Cardiology and Pulmonology. Continue with antibiotics, bronchodilators. Repeat labs. Further recommendations to follow. MMODL / IJN: [id number] /
[2025-05-08 17:03] LABS: Glucose,Whole Blood 161 mg/dL (70-110)
[2025-05-08 19:55] LABS: Glucose,Whole Blood 193 mg/dL (70-110)
[2025-05-09] MEDS: LEVOTHYROXINE 75 MCG TAB PO SCH (05:48)
[2025-05-09 05:57] LABS: Glucose,Whole Blood 172 mg/dL (70-110)
[2025-05-09 08:30] LABS: Basophils # (A) 0.01 10*3/uL (0.00-0.10); Basophils % (A) 0.1 %; HCT 38.1 % (39.6-50.0); HGB 13.1 g/dL (13.0-17.0); Lymphocytes % (A) 6.2 %; MCH 29.8 pg (27.0-32.0); MCHC 34.4 g/dL (32.0-37.0); MCV 86.8 fL (80.0-97.0); Mean Platelet Volume 11.2 fL (9.5-12.2); Monocytes # (A) 0.38 10*3/uL (0.20-1.00); Monocytes % (A) 2.3 %; Neutrophils # (A) 14.73 10*3/uL (1.80-7.70); Platelet Count 240 10*3/uL (140-440); RBC 4.39 10*6/uL (4.40-5.60); RDW 11.9 % (11.5-14.5); WBC 16.19 10*3/uL (4.50-10.00)
[2025-05-09 08:46] LABS: African American GFR (CKD) >90 (>60 ml/min/1.73 sqM); Anion Gap 10 mmol/L; Blood Urea Nitrogen 18 mg/dL (9-20); Calcium 10.1 mg/dL (8.4-10.2); Carbon Dioxide 23 mmol/L (22-30); Chloride 106 mmol/L (98-107); Glucose 172 mg/dL (74-99); Non-African American GFR(CKD) >90 (>60 ml/min/1.73 sqM); Potassium 4.1 mmol/L (3.5-5.1); Sodium 139 mmol/L (137-145)
[2025-05-09 11:58] LABS: Glucose,Whole Blood 202 mg/dL (70-110)
[2025-05-09 12:02] VITALS: BP 154/79; PULSE 62; RESP 18; TEMP 97.9
--- NOTE | 2025-05-09 15:12 | P.PN ---
Subjective Progress Note Date: 05/09/25 This is a 64-year-old male patient with a known history of chronic back pain, former smoker who presented here to the emergency room early this morning with complaints of shortness of breath over the past 4 days. He has also had fever and chills along with diarrhea. His cough has been nonproductive. Chest x-ray reveals no acute pulmonary process. He is maintaining O2 saturations in the 90s on room air oxygen. He is afebrile. Hemodynamically stable. White count 6.4. Hemoglobin 15.1. Platelets 213. Sodium 138. Potassium 4.5. Bicarb 20. BUN 16. Creatinine 0.86. Glucose 110. Troponin negative x 1. proBNP 67. Viral screen was negative for influenza A/B, RSV and COVID. He is seen today in the emergency department in consultation. He is sitting up on a stretcher. Awake and alert in no acute distress. He does have a dry nonproductive cough. He is dyspneic with conversation. Dyspneic with minimal exertion. Echocardiogram revealed normal left ventricular size and systolic function. No significant valvular heart disease. No pulmonary hypertension. The patient is seen today May 08, 2025 in follow-up on the selective care unit. He is currently up ambulating in his room. Awake and alert in no acute distress. Denies any worsening shortness of breath, cough or congestion. Feeling nearly back to his baseline. He is maintaining good O2 saturations in the mid 90s on room air oxygen. He is been afebrile. Hemodynamically stable. White count 13.5. Hemoglobin 13.1. Platelets 187. Sodium 136. Potassium 4.2. Bicarb 24. BUN 15. Creatinine 0.82. Glucose 214. Hemoglobin A1c 6.4%. He remains on DuoNeb inhalations, IV Solu-Medrol. Antibiotics in the form of ce ftriaxone and azithromycin. Lovenox for DVT prophylaxis. Remains on Mucinex. Robitussin as needed. The patient is seen today May 09, 2025 in follow-up on the selective care unit. He is awake and alert in no acute distress. Maintaining good O2 saturations in the 90s on room air oxygen. He has been up ambulating in his room without any shortness of breath. No worsening cough or congestion. White count 16.1. Hemoglobin 13.1. Platelets 240. Sodium 139. Potassium 4.1. Bicarb 23. BUN 1 8. Creatinine 0.81. Glucose 172. He remains on DuoNeb inhalations IV Solu- Medrol. Antibiotics in the form of ceftriaxone and azithromycin. Objective - Vital Signs Vital signs: Vital Signs Temp 97.9 F 05/09/25 11:59 Pulse 62 05/09/25 11:59 Resp 18 05/09/25 11:59 BP 154/79 05/09/25 11:59 Pulse Ox 95 05/09/25 11:59 FiO2 Intake & Output 05/08/25 05/09/25 05/09/25 18:59 06:59 18:59 Intake Total 540 20 380 Balance 540 20 380 Weight 83.1 kg Intake: IV 20 20 Invasive Line 2 20 20 Oral 540 360 Other: # Voids 2 4 - Exam GENERAL EXAM: Alert, very pleasant 64-year-old male, ambulating in his room, on room air oxygen, in no apparent distress. HEAD: Normocephalic. EYES: Normal reaction of pupils, equal size. NOSE: Clear with pink turbinates. THROAT: No erythema or exudates. NECK: No masses, no JVD. CHEST: No chest wall deformity. LUNGS: Equal air entry with few scattered rhonchi. CVS: S1 and S2 normal with no audible murmur, regular rhythm. ABDOMEN: No hepatosplenomegaly, normal bowel sounds, no guarding or rigidity. SPINE: No scoliosis or deformity SKIN: No rashes CENTRAL NERVOUS SYSTEM: No focal deficits, tone is normal in all 4 extremities. EXTREMITIES: There is no peripheral edema. No clubbing, no cyanosis. Peripheral pulses are intact. - Labs CBC & Chem 7: 05/09/25 07:07 05/09/25 07:07 Labs: Abnormal Lab Results - Last 24 Hours (Table) 05/08/25 05/08/25 05/09/25 Range/Units 17:02 19:53 05:54 WBC (4.50-10.00) 10*3/uL RBC (4.40-5.60) 10*6/uL Hct (39.6-50.0) % Immature Gran # (0.00-0.04) 10*3/uL Neutrophils # (1.80-7.70) 10*3/uL Eosinophils # (0.04-0.35) 10*3/uL Glucose (74-99) mg/dL POC Glucose (mg/dL) 161 H 193 H 172 H (70-110) mg/dL 05/09/25 05/09/25 05/09/25 Range/Units 07:07 07:07 11:57 WBC 16.19 H (4.50-10.00) 10*3/uL RBC 4.39 L (4.40-5.60) 10*6/uL Hct 38.1 L (39.6-50.0) % Immature Gran # 0.07 H (0.00-0.04) 10*3/uL Neutrophils # 14.73 H (1.80-7.70) 10*3/uL Eosinophils # 0.00 L (0.04-0.35) 10*3/uL Glucose 172 H (74-99) mg/dL POC Glucose (mg/dL) 202 H (70-110) mg/dL Microbiology - Last 24 Hours (Table) 05/08/25 17:48 Gram Stain - Preliminary Sputum 05/07/25 11:32 Blood Culture - Preliminary Blood Assessment and Plan Assessment: Dyspnea secondary to suspected acute exacerbation of chronic obstructive pulmonary disease versus early pneumonia. Chest x-ray reveals no acute cardiopulmonary process. Procalcitonin negative. Viral screen negative for influenza A/B, RSV, COVID. CT scan of the chest reveals a nodule with smaller punctate densities in the right lower lung field. Former smoker Chronic back pain Plan: The patient was seen and evaluated Labs and medications reviewed Currently stable on room air oxygen Cleared for discharge Complete a prednisone taper Recommend Symbicort, albuterol HFA Follow-up in our office in 1 week Recommend follow-up CT scan of the chest I have personally seen and examined the patient, performed the documentation and the assessment and plan as written. Number of minutes spent on the visit: 10 Dictation was produced using [employer] dictation software. Please excuse any grammatical, word or spelling errors.
[2025-05-13] MEDS ORDERED: ERGOCALCIFEROL 1,250 MCG (50,000 IU) CAPSULE PO SCH (09:00)
== END 2025-05-09 14:36 | disposition home or self-care (01) | DRG 194 ==
LOC: EC 04:59 → 6NMEDSUR 06:50 → OBSVTOIN 06:51 → 3SCARD 17:36
PROVIDERS: ADMIT Internal Medicine; ATTEND Internal Medicine
DX: J18.9 Pneumonia, unspecified organism (principal); J44.0 Chronic obstructive pulmonary disease with (acute) lower respiratory infection; E03.9 Hypothyroidism, unspecified; J44.1 Chronic obstructive pulmonary disease with (acute) exacerbation; Z11.52 Encounter for screening for COVID-19; Z79.890 Hormone replacement therapy; M54.9 Dorsalgia, unspecified; E78.00 Pure hypercholesterolemia, unspecified; G89.29 Other chronic pain; I49.3 Ventricular premature depolarization; J20.9 Acute bronchitis, unspecified; Z87.891 Personal history of nicotine dependence
CPT/HCPCS: 36415; 71046; 71260; 80048; 80053; 83036; 83605; 83735; 83880; 84145; 84439; 84443; 84484; 85025; 85379; 85610; 85730; 87040; 87070; 87205; 87636; 93005; 93225; 93306; 94640; 94760; 96361; 96365; 96367; 96375; 96376; 99285